=== PATIENT | female | born 1960 | race African-American/Black ===

== ENCOUNTER 2020-06-04 12:53 | Emergency (ER) | payer MEDICAID ==
[~2020-06-04] VITALS: Ht 157.5 cm; Wt 84.4 kg
[2020-06-04 12:55] VITALS: BP 171/81
--- NOTE | 2020-06-04 13:01 | NUR ---
Pt ambulated to ER bed 4 with a steady gait.
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
--- NOTE | 2020-06-04 13:19 | NUR ---
DR MALDONADO AT BEDSIDE EXAMINING PATIENT
[2020-06-04] MEDS ORDERED: IBUPROFEN 800 MG TAB PO ONE (13:20)
[2020-06-04] MEDS ORDERED: BACITRACIN OINT 500 UNITS/GM PKT TP ONE ×2 (13:20→13:22)
[2020-06-04] MEDS ORDERED: IBUP-2213 PO (13:26)
--- NOTE | 2020-06-04 13:27 | NUR ---
APPLIED BACITRACIN TO TOP LEFT HEAD
[2020-06-04 13:36] VITALS: BP 171/81
== END 2020-06-04 13:37 | disposition home or self-care (01) ==
LOC: MED 12:53
DX: S01.81XA Laceration without foreign body of other part of head, initial encounter (principal); W22.8XXA Striking against or struck by other objects, initial encounter; Y93.89 Activity, other specified; Y92.89 Other specified places as the place of occurrence of the external cause; Y99.8 Other external cause status
CPT/HCPCS: 90471; 90715; 99283

== ENCOUNTER 2020-06-11 15:21 | Emergency (ER) | payer MEDICAID ==
[~2020-06-11] VITALS: Ht 157.5 cm; Wt 83.0 kg
[~2020-06-11 15:21] MED LIST: IBUP-2213 PO
[2020-06-11 15:28] VITALS: BP 123/64
--- NOTE | 2020-06-11 15:46 | NUR ---
PT PRESENTS FOR REMOVAL OF TAMMI PLACE ON TOP LEFT HEAD. DENIES ANY PAIN OR DISCOMFORT AT THIS TIME. NO DRAINAGE NOTED TO SITE.
--- NOTE | 2020-06-11 16:38 | NUR ---
PT AMBULATED WITH STEADY GAIT TO BED SIDE.
--- NOTE | 2020-06-11 17:04 | NUR ---
DR. RAI AT BEDSIDE EXAMINING PT
[2020-06-11 17:19] VITALS: BP 123/64
--- NOTE | 2020-06-11 17:19 | NUR ---
Patient discharged with v/s stable. Written and verbal after care instructions given and explained. Patient verbalized understanding. Ambulatory with steady gait. All questions addressed prior to discharge. Advised to follow up with PMD.
== END 2020-06-11 17:19 | disposition home or self-care (01) ==
LOC: MED 15:21
DX: S01.91XD Laceration without foreign body of unspecified part of head, subsequent encounter (principal); I10 Essential (primary) hypertension; Z48.00 Encounter for change or removal of nonsurgical wound dressing; W26.8XXD Contact with other sharp object(s), not elsewhere classified, subsequent encounter
CPT/HCPCS: 99281; 99283